=== PATIENT | male | born 1995 | race Caucasian/White ===

== ENCOUNTER 2021-08-01 15:16 | Emergency (ER) | payer MEDICAID ==
[~2021-08-01] VITALS: Ht 182.9 cm; Wt 122.5 kg
[2021-08-01 15:19] VITALS: BP 155/100
--- NOTE | 2021-08-01 15:19 | NUR ---
PT FAY SYED, VIA GURNEY TO BED 08.
[2021-08-01] MEDS ORDERED: NACL 0.9% 1,000 ML IV ONE (15:20)
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
--- NOTE | 2021-08-01 15:47 | NUR ---
DR. VASQUES BEDSIDE EVALUATING PT
--- NOTE | 2021-08-01 16:16 | NUR ---
RAD AT BEDSIDE
[2021-08-01 17:05] LABS: BASOPHILS # (AUTO) 0.1 K/uL (0.00-0.22); BASOPHILS % (AUTO) 0.9 % (0.0-2.0); EOSINOPHILS % (AUTO) 0.3 % (0.0-4.0); HEMOGLOBIN 12.2 g/dL (12.0-18.0); LYMPHOCYTES # (AUTO) 1.1 K/uL (2.0-11.5); LYMPHOCYTES % (AUTO) 20.5 % (20.5-51.1); MEAN CORPUSCULAR HEMOGLOBIN 30 pg (27-31); MEAN CORPUSCULAR HGB CONC 34 g/dL (33-37); MEAN CORPUSCULAR VOLUME 88.4 fL (80-94); MONOCYTES # (AUTO) 0.5 K/uL (0.8-1.0); NEUTROPHILS # (AUTO) 3.9 K/uL (1.8-7.7); NEUTROPHILS % (AUTO) 69.3 % (42.2-75.2); PLATELET COUNT (AUTO) 209 K/uL (140-450); RED BLOOD CELL COUNT(AUTO) 4.07 MIL/uL (4.20-6.10); RED CELL DISTRIBUTION WIDTH 14.6 % (11.6-13.7); WHITE BLOOD COUNT (AUTO) 5.6 K/uL (4.8-10.8)
[2021-08-01 17:31] LABS: ALBUMIN 3.5 g/dL (3.4-5.0); ANION GAP 13.8 (8-16); CARBON DIOXIDE 24.8 mmol/L (21-32); POTASSIUM 3.6 mmol/L (3.5-5.1)
[2021-08-01 19:03] VITALS: BP 150/102
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
== END 2021-08-01 19:03 ==
LOC: MED 15:16
DX: F18.10 Inhalant abuse, uncomplicated (principal); I10 Essential (primary) hypertension; Z02.89 Encounter for other administrative examinations
CPT/HCPCS: 36415; 71045; 80053; 82550; 85025; 93005; 96360; 99285; J7030

== ENCOUNTER 2022-08-24 20:59 | Emergency (ER) | payer MEDICAID ==
[~2022-08-24] VITALS: Ht 182.9 cm; Wt 127.0 kg
--- NOTE | 2022-08-24 21:10 | NUR ---
PT YAHAIRA APONTE. TAKEN TO BED 12
[2022-08-24 21:16] VITALS: BP 173/108
--- NOTE | 2022-08-24 21:23 | NUR ---
UA collected and sent to lab
[2022-08-24 22:56] VITALS: BP 173/108
--- NOTE | 2022-08-24 22:56 | NUR ---
Patient discharged with v/s stable. Written and verbal after care instructions given and explained. Patient verbalized understanding. Ambulatory with by parent. All questions addressed prior to discharge. Advised to follow up with PMD.
== END 2022-08-24 22:56 | disposition home or self-care (01) ==
LOC: MED 20:59
DX: R55 Syncope and collapse (principal); T59.891A Toxic effect of other specified gases, fumes and vapors, accidental (unintentional), initial encounter; Y92.89 Other specified places as the place of occurrence of the external cause
CPT/HCPCS: 99283

== ENCOUNTER 2022-10-09 17:04 | Emergency (ER) | payer SELFPAY ==
[~2022-10-09] VITALS: Ht 182.9 cm; Wt 125.2 kg
[2022-10-09 17:30] VITALS: BP 143/99
--- NOTE | 2022-10-09 17:35 | NUR ---
PT AMBULATED TO BED 8
--- NOTE | 2022-10-09 17:40 | NUR ---
MD ARAUZ AT BEDSIDE FOR EVALUATION
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
[2022-10-09] MEDS ORDERED: NEOM28OI TP (17:54)
[2022-10-09] MEDS ORDERED: PRED20TA6 PO (17:54)
--- NOTE | 2022-10-09 18:08 | NUR ---
Patient discharged with v/s stable. Written and verbal after care instructions given and explained. Patient alert, oriented and verbalized understanding of instructions. Ambulatory with steady gait. All questions addressed prior to discharge. ID band removed. Patient advised to follow up with PMD. Rx of PREDNISONE AND NEOMYCIN/BACITRACIN/POLYMYXINB given. Opportunity to ask questions provided and answered.
--- NOTE | 2022-10-09 18:21 | NUR ---
The patient's care was reviewed and supervised by [facility], RN.
== END 2022-10-09 18:08 | disposition home or self-care (01) ==
LOC: MED 17:04
DX: L25.9 Unspecified contact dermatitis, unspecified cause (principal); Z79.899 Other long term (current) drug therapy
CPT/HCPCS: 99283

== ENCOUNTER 2022-12-15 12:00 | Emergency (ER) | payer MEDICAID ==
[~2022-12-15] VITALS: Ht 172.7 cm; Wt 95.3 kg
[~2022-12-15 12:00] MED LIST: NEOM28OI TP; PRED20TA6 PO
[2022-12-15 12:04] VITALS: BP 138/92; PULSE 76; RESP 18; TEMP 97.2; O2SAT 98
== END 2022-12-15 12:19 | disposition left against medical advice (07) ==
LOC: MED 12:00
DX: F18.10 Inhalant abuse, uncomplicated (principal); Z79.899 Other long term (current) drug therapy; Z53.21 Procedure and treatment not carried out due to patient leaving prior to being seen by health care provider
CPT/HCPCS: 99281

== ENCOUNTER → 2022-12-15 13:51 | Emergency (ER) | payer MEDICAID | END | disposition left against medical advice (07) | LOC: MED 13:51 | DX: F18.10 Inhalant abuse, uncomplicated (principal); Z53.21 Procedure and treatment not carried out due to patient leaving prior to being seen by health care provider; Z79.899 Other long term (current) drug therapy | CPT/HCPCS: 99281 ==

== ENCOUNTER 2022-12-18 19:13 | Emergency (ER) | payer MEDICAID ==
[~2022-12-18] VITALS: Ht 182.9 cm; Wt 122.5 kg
[2022-12-18 19:13] VITALS: BP 139/89; PULSE 110; RESP 17; TEMP 98; O2SAT 96
[2022-12-18 19:30] VITALS: BP 139/89; RESP 17; TEMP 98
[2022-12-18 19:42] VITALS: PULSE 90; O2SAT 98
[2022-12-18 19:53] LABS: BASOPHILS # (AUTO) 0.1 K/uL (0.00-0.22); BASOPHILS % (AUTO) 0.7 % (0.0-2.0); EOSINOPHILS # (AUTO) 0.1 K/uL (0-0.4); EOSINOPHILS % (AUTO) 0.8 % (0.0-4.0); HEMATOCRIT 37.9 % (36-52); HEMOGLOBIN 12.7 g/dL (12.0-18.0); LYMPHOCYTES % (AUTO) 12.6 % (20.5-51.1); MEAN CORPUSCULAR HEMOGLOBIN 29 pg (27-31); MEAN CORPUSCULAR HGB CONC 33 g/dL (33-37); MONOCYTES # (AUTO) 0.7 K/uL (0.8-1.0); MONOCYTES % (AUTO) 8.3 % (1.7-9.3); NEUTROPHILS # (AUTO) 6.1 K/uL (1.8-7.7); NEUTROPHILS % (AUTO) 77.6 % (42.2-75.2); PLATELET COUNT (AUTO) 221 K/uL (140-450); WHITE BLOOD COUNT (AUTO) 7.8 K/uL (4.8-10.8)
[2022-12-18 20:11] LABS: ALANINE AMINOTRANSFERASE 27 U/L (12-78); ALBUMIN 3.7 g/dL (3.4-5.0); ALKALINE PHOSPHATASE 59 U/L (50-136); ANION GAP 12.4 (8-16); ASPARTATE AMINOTRANSFERASE 16 U/L (15-37); CALCIUM 8.3 mg/dL (8.5-10.1); CARBON DIOXIDE 27.2 mmol/L (21-32); CHLORIDE 106 mmol/L (98-107); CREATININE 1.3 mg/dL (0.6-1.3); GFR ARICAN-AMERICAN 84 mL/min (>90); GFR NON ARICAN-AMERICAN 69 mL/min (>90); GLUCOSE 105 mg/dL (74-106); POTASSIUM 3.6 mmol/L (3.5-5.1); SODIUM SERUM 142 mmol/L (136-145); TOTAL BILIRUBIN 0.4 mg/dL (0.0-1.0); TOTAL PROTEIN, SERUM 7.7 g/dL (6.4-8.2); UREA NITROGEN, BLOOD 5 mg/dL (7-18)
[2022-12-18 20:26] LABS: BILIRUBIN,URINE NEGATIVE (NEGATIVE); BLOOD, URINE NEGATIVE (NEGATIVE); LEUKOCYTE ESTERASE ,URINE 1+ (NEGATIVE); NITRITE, URINE NEGATIVE (NEGATIVE); PROTEIN,URINE NEGATIVE (NEGATIVE); UGLUCOSE NEGATIVE (NEGATIVE); UROBILINOGEN,URINE 0.2 EU/dL (0.2 - 1)
[2022-12-18 20:33] LABS: SALICYLATE < 2.8 mg/dL (2.8-20.0)
[2022-12-18 20:39] LABS: ALCOHOL, BLOOD < 3 mg/dL (<10)
[2022-12-18 21:44] LABS: APPEARANCE,URINE HAZY (CLEAR)
[2022-12-18 21:48] LABS: AMPHETAMINE, URINE NEGATIVE ng/ml (NEG <=1000); BARBITURATE, URINE NEGATIVE ng/ml (NEG <=200); BENZODIAZEPINE, URINE NEGATIVE ng/mL (NEG <=200); CANNABINOID, URINE NEGATIVE ng/mL (NEG <=50); COCAINE, URINE NEGATIVE ng/mL (NEG <=300); OPIATE, URINE NEGATIVE ng/mL (NEG <=2000); PHENCYCLIDINE SCREEN,URINE NEGATIVE ng/mL (NEG <=25)
[2022-12-18 21:49] LABS: BACTERIA,URINE FEW /HPF (None Seen); COLOR,URINE STRAW (YELLOW); RBC,URINE NONE SEEN /HPF (0-5); SQUAMOUS EPITHELIAL CELL,UR None Seen /LPF (0-3 (FEW)); WBC,URINE 0-5 /HPF (0-5)
== END 2022-12-18 21:28 | disposition home or self-care (01) ==
LOC: MED 19:13
DX: R56.9 Unspecified convulsions (principal); F18.10 Inhalant abuse, uncomplicated; Z79.899 Other long term (current) drug therapy
CPT/HCPCS: 36415; 70450; 71045; 80053; 80305; 81001; 85025; 87086; 93005; 99285; G0480; G0482

== ENCOUNTER 2022-12-19 17:10 | Emergency (ER) | payer MEDICAID ==
[~2022-12-19] VITALS: Ht 182.9 cm; Wt 122.5 kg
[2022-12-19 17:15] VITALS: BP 143/95; PULSE 95; RESP 14; TEMP 97.8; O2SAT 97
== END 2022-12-19 21:30 | disposition left against medical advice (07) ==
LOC: MED 17:10
DX: F19.10 Other psychoactive substance abuse, uncomplicated (principal); Z53.21 Procedure and treatment not carried out due to patient leaving prior to being seen by health care provider
CPT/HCPCS: 99281

== ENCOUNTER 2023-01-22 10:59 | Emergency (ER) | payer MEDICAID ==
[~2023-01-22] VITALS: Ht 172.7 cm; Wt 81.6 kg
[2023-01-22 11:04] VITALS: BP 150/98; PULSE 108; RESP 16; TEMP 98.1; O2SAT 97
== END 2023-01-22 11:36 | disposition left against medical advice (07) ==
LOC: MED 10:59
DX: R53.83 Other fatigue (principal); Z53.21 Procedure and treatment not carried out due to patient leaving prior to being seen by health care provider
CPT/HCPCS: 99281

== ENCOUNTER 2023-03-05 09:26 | Emergency (ER) | payer MEDICAID | END 2023-03-05 09:36 | disposition left against medical advice (07) | LOC: MED 09:26 | DX: R53.1 Weakness (principal); Z53.21 Procedure and treatment not carried out due to patient leaving prior to being seen by health care provider ==

== ENCOUNTER 2023-09-28 10:14 | Emergency (ER) | payer MEDICAID, OTHER ==
[~2023-09-28] VITALS: Ht 180.3 cm; Wt 90.7 kg
[2023-09-28 10:15] VITALS: BP 138/99; PULSE 108; RESP 35; TEMP 97.9; O2SAT 97
== END 2023-09-28 10:40 | disposition left against medical advice (07) ==
LOC: MED 10:14
DX: R51.9 Headache, unspecified (principal); Z53.21 Procedure and treatment not carried out due to patient leaving prior to being seen by health care provider

== ENCOUNTER 2024-02-16 17:25 | Emergency (ER) | payer OTHER ==
[~2024-02-16] VITALS: Ht 182.9 cm; Wt 127.0 kg
[2024-02-16 17:39] VITALS: BP 162/95; PULSE 99; RESP 18; TEMP 98.3; O2SAT 98
[2024-02-16] MEDS ORDERED: DOXY-469 PO (19:19)
[2024-02-16 19:24] VITALS: BP 162/95; PULSE 99; RESP 18; TEMP 98.3; O2SAT 98
== END 2024-02-16 19:24 | disposition home or self-care (01) ==
LOC: MED 17:25
DX: L03.114 Cellulitis of left upper limb (principal); Z79.899 Other long term (current) drug therapy
CPT/HCPCS: 99284